=== PATIENT | female | born 2000 | race Caucasian/White ===

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

== ENCOUNTER 2018-09-25 08:36 | Emergency (ER) | payer SELFPAY ==
[2018-09-25] MEDS ORDERED: NS 0.9% 1000 ML** 1,000 ML IV ONE ×2 (09:06→10:12)
[2018-09-25] MEDS ORDERED: diPHENhydraMINE IV* 50 MG/ML 1 ml VIAL (BENADRYL) IV ONE (09:06)
[2018-09-25] MEDS ORDERED: Haloperidol INJ IV/IM* 5 MG/ML AMP IV SLOW PU ONE (09:07)
[2018-09-25 09:32] LABS: ABS Basophils 0.1 10^3/ul (0-0.2); ABS Eosinophils 0 10^3/ul (0-0.6); ABS Monocytes 0.7 10^3/ul (0-0.8); ABS Neutrophils 7.4 10^3/ul (1.5-7.7); ABS Nucleated RBC 0 10^3/ul; Eosinophil % 0.2 %; Hematocrit 51 % (33-41); Hemoglobin 17.6 g/dL (12.0-16.0); Lymphocyte % 19.4 %; Mean Corpuscular HGB Conc 35 g/dL (31-36); Mean Corpuscular Hemoglobin 32 pg (27-31); Mean Corpuscular Volume 91 fL (80-97); Mean Platelet Volume 8.5 fL (7.4-10.4); Nucleated Red Blood Cells % 0.2; Platelet Count 291 10^3/uL (150-450); Red Blood Count 5.54 10^6 /uL (3.70-4.87); Red Cell Distribution Width 13 % (10.5-15); White Blood Count 10.2 10^3/uL (3.5-10.8)
[2018-09-25 09:48] LABS: Anion Gap 14 mmol/L (2-11); BUN/Creatinine Ratio 14.4 (8-20); Blood Urea Nitrogen 15 mg/dL (6-24); CO2 Carbon Dioxide 25 mmol/L (22-32); Calcium 10.7 mg/dL (8.6-10.3); Chloride 96 mmol/L (101-111); EGFR African American 82.6 (>60); EGFR Non-African American 68.3 (>60); Glucose 109 mg/dL (70-100); Potassium 3.8 mmol/L (3.5-5.0); Sodium 135 mmol/L (135-145)
[2018-09-25 09:55] LABS: HCG Pregnancy < 0.60 mIU/mL
--- NOTE | 2018-09-25 10:14 | ED ---
Nausea/Vomiting/Diarrhea HPI - HPI Summary HPI Summary: 17 year old female presents to the emergency department for evaluation of vomiting. This problem has been present for 2 weeks and is constant. She is unable to keep any food/fluids down. Pt also reports abdominal pain, weakness, and tingling in her hands and feet. She states she had a similar episode of this 2 months ago that was improved with hydration and anti-nausea medications. She was treated at a hospital where she goes to school in [place]. Pt denies fever, diarrhea, SOB, cough, congestion, diarrhea, urinary urgency, dysuria, and any sick contacts. Pt is a frequent marijuana smoker "almost daily ". LMP was 2 weeks ago. - History of Current Complaint Chief Complaint: EDNauseaVomitDiarrh Stated Complaint: VOMITING FOR 48 HRS PER PT Time Seen by Provider: 09/25/18 08:48 Hx Obtained From: Patient Hx Last Menstrual Period: 04/01/17 Pain Intensity: 8 - Allergies/Home Medications Allergies/Adverse Reactions: Allergies Allergy/AdvReac Type Severity Reaction Status Date / Time No Known Allergies Allergy Verified 09/25/18 08:47 PMH/Surg Hx/FS Hx/Imm Hx Previously Healthy: Yes Endocrine/Hematology History: Reports: Hx Thyroid Disease - Surgical History Surgery Procedure, Year, and Place: appy, thyroid Infectious Disease History: No Infectious Disease History: Denies: Traveled Outside the [place] in Last 30 Days - Family History Known Family History: Positive: Non-Contributory - Social History Occupation: Student Alcohol Use: Rare Substance Use Type: Reports: Marijuana Substance Use Comment - Amount & Last Used: Daily Smoking Status (MU): Never Smoked Tobacco Review of Systems Positive: Fatigue. Negative: Fever Positive: Sore Throat. Negative: Ear Ache, Nasal Discharge Positive: Chest Pain - burning Respiratory: Negative Negative: Shortness Of Breath, Cough Positive: Abdominal Pain, Vomiting, Nausea. Negative: Diarrhea Genitourinary: Negative Positive: no symptoms reported. Negative: burning, dysuria Negative: Decreased ROM, Edema Skin: Negative Negative: Rash Positive: Paresthesia All Other Systems Reviewed And Are Negative: Yes Physical Exam Triage Information Reviewed: Yes Vital Signs On Initial Exam: Initial Vitals Temp Pulse Resp BP Pulse Ox 98.7 F 103 18 145/118 98 09/25/18 08:44 09/25/18 08:44 09/25/18 08:44 09/25/18 08:44 09/25/18 08:44 Vital Signs Reviewed: Yes Appearance: Positive: Well-Appearing - mildly uncomfortable, Well-Nourished Skin: Positive: Warm, Skin Color Reflects Adequate Perfusion, Dry Head/Face: Positive: Normal Head/Face Inspection Eyes: Positive: Normal, EOMI ENT: Positive: Normal ENT inspection, Hearing grossly normal, Pharynx normal Neck: Positive: Supple, Nontender Respiratory/Lung Sounds: Positive: Clear to Auscultation, Breath Sounds Present Cardiovascular: Positive: Normal, RRR, Pulses are Symmetrical in both Upper and Lower Extremities Abdomen Description: Positive: Soft, CVA Tenderness (R) - mild tenderness. Also tenderness to light touch Bowel Sounds: Positive: Present Musculoskeletal: Positive: Normal, Strength/ROM Intact Neurological: Positive: Normal, Sensory/Motor Intact, Alert, Oriented to Person Place, Time Psychiatric: Positive: Normal, Affect/Mood Appropriate Diagnostics - Vital Signs Vital Signs Temp Pulse Resp BP Pulse Ox 09/25/18 08:44 98.7 F 103 18 145/118 98 - Laboratory Lab Results: Lab Results 09/25/18 09/25/18 Range/Units 09:22 09:22 WBC 10.2 (3.5-10.8) 10^3/uL RBC 5.54 H (3.70-4.87) 10^6 /uL Hgb 17.6 H (12.0-16.0) g/dL Hct 51 H (33-41) % MCV 91 (80-97) fL MCH 32 H (27-31) pg MCHC 35 (31-36) g/dL RDW 13 (10.5-15) % Plt Count 291 (150-450) 10^3/uL MPV 8.5 (7.4-10.4) fL Neut % (Auto) 73.0 % Lymph % (Auto) 19.4 % [place] % (Auto) 6.9 % Eos % (Auto) 0.2 % Baso % (Auto) 0.5 % Absolute Neuts (auto) 7.4 (1.5-7.7) 10^3/ul Absolute Lymphs (auto) 2.0 (1.0-4.8) 10^3/ul Absolute Monos (auto) 0.7 (0-0.8) 10^3/ul Absolute Eos (auto) 0 (0-0.6) 10^3/ul Absolute Basos (auto) 0.1 (0-0.2) 10^3/ul Absolute Nucleated RBC 0 10^3/ul Nucleated RBC % 0.2 Sodium 135 (135-145) mmol/L Potassium 3.8 (3.5-5.0) mmol/L Chloride 96 L (101-111) mmol/L Carbon Dioxide 25 (22-32) mmol/L Anion Gap 14 H (2-11) mmol/L BUN 15 (6-24) mg/dL Creatinine 1.04 H (0.51-0.95) mg/dL Est GFR ( Amer) 82.6 (>60) Est GFR (Non-Af Amer) 68.3 (>60) BUN/Creatinine Ratio 14.4 (8-20) Glucose 109 H (70-100) mg/dL Calcium 10.7 H (8.6-10.3) mg/dL Beta HCG, Quant < 0.60 mIU/mL Result Diagrams: 09/25/18 09:22 09/25/18 09:22 Lab Statement: Any lab studies that have been ordered have been reviewed, and results considered in the medical decision making process. Naus/Vom/Diarrhea Course/Dx - Course Course Of Treatment: Pt presents with 2 days of persistent vomiting diffuse abdominal pain. She has no fever, chills, cough, congestion, diarrhea, or any urinary symptoms. She also reports a similar episode occurring 2 months ago. Pt states she smokes marijuana almost daily. Physical exam and labs are unremarkable. Pt was given 2 liters of NS, 2.5 mg of haldol, and 50 mg of benadryl and reports improvement of her symptoms. She was advised her symptoms are likely due to her chronic marijuana use and may take a month to resolve. She was instructed to discontinue smoking marijuana and follow up with any fever , chills, or worsening symptoms. I saw the patient in collaboration with the physician patient care nursing assistant student. The history and physical and medical decision- making represented are mine. Patient with daily cannabis use with recurring episodes of intractable nausea and vomiting. Likely cannabis hyperemesis syndrome. Symptoms resolved here. - Differential Dx/Diagnosis Differential Diagnoses - Female: Bowel Obstruction, Pancreatitis, , Gastroenteritis (Viral), Gastroenteritis (Bacterial), Vomiting, Pyelonephritis, Renal Calculi, Gastritis, Cholecystitis, Other - Cannabinoid hyperemesis syndrome Provider Diagnosis: Cannabinoid hyperemesis syndrome, Cyclic vomiting syndrome Condition At Discharge: Improved Discharge - Sign-Out/Discharge Documenting (check all that apply): Patient Departure Patient Received Moderate/Deep Sedation with Procedure: No - Discharge Plan Condition: Improved Disposition: HOME Patient Education Materials: Cannabis Abuse (ED), Cyclic Vomiting Syndrome (ED) Referrals: No Primary Care Phys,NOPCP [Primary Care Provider] - Additional Instructions: Immediately discontinue marijuana. You can still have symptoms from it for up to a month. Stay well-hydrated, Gatorade G2 may help best and eat a bland diet. Follow-up with your doctor at the [facility]. Return with persistent vomiting, worse, fever, new symptoms or other concerns. - Billing Disposition and Condition Condition: IMPROVED Disposition: Home - Attestation Statements Document Initiated by Dany: No
[2018-09-25 11:26] VITALS: BP 158/115
== END 2018-09-25 11:25 | disposition home or self-care (01) ==
LOC: ED 08:36
DX: F32.9 Major depressive disorder, single episode, unspecified (principal); R45.851 Suicidal ideations; Z88.0 Allergy status to penicillin
CPT/HCPCS: 36415; 80048; 84702; 85025; 99285; J1200; J1630